=== PATIENT | male | born 1985 | race Caucasian/White ===

== ENCOUNTER 2018-01-06 07:22 | Emergency (ER) | payer SELFPAY ==
[~2018-01-06] VITALS: Ht 180.3 cm; Wt 114.0 kg
[~2018-01-06 07:22] MED LIST: FLEXERIL PO; ULTRAM50 M1 PO
[2018-01-06] MEDS ORDERED: LORTAB 5/3255 MG PO (07:42)
[2018-01-06] MEDS ORDERED: PENICILLN VK500 MG PO (07:42)
[2018-01-06] MEDS ORDERED: MOTRIN800 MG PO (07:42)
[2018-01-06 07:53] VITALS: BP 147/106
== END 2018-01-06 08:02 | disposition home or self-care (01) | DRG 159 ==
LOC: ED 07:22
DX: K08.89 Other specified disorders of teeth and supporting structures (principal); F17.210 Nicotine dependence, cigarettes, uncomplicated; R22.0 Localized swelling, mass and lump, head

== ENCOUNTER 2021-08-26 16:13 | Emergency (ER) | payer BC ==
[~2021-08-26] VITALS: Ht 180.3 cm; Wt 127.0 kg
[~2021-08-26 16:13] MED LIST changes: +LORTAB 5/3255 MG PO; +MOTRIN800 MG PO; +PENICILLN VK500 MG PO
[2021-08-26 17:04] LABS: HEMATOCRIT 46.1 % (39.0-50.0); HEMOGLOBIN 15.3 g/dl (14.0-18.0); IMMATURE GRANULOCYTES 0.5 % (0.0-5.0); MEAN CORPUSCULAR HGB 31.9 pG CALC (26.0-32.0); MEAN CORPUSCULAR HGB CONC 33.2 g/dL CAL (32.0-36.0); NEUT# 7.39 thou/uL (1.82-7.42); RED BLOOD COUNT 4.8 mill/uL (4.70-6.10); RED CELL DISTRI WIDTH 12.3 % (11.5-15.5)
[2021-08-26 17:05] LABS: URINE BILIRUBIN - DIPSTICK NEGATIVE (NEGATIVE); URINE BLOOD DIPSTICK NEGATIVE (NEGATIVE); URINE COLOR YELLOW; URINE GLUCOSE - DIPSTICK NEGATIVE (NEGATIVE); URINE KETONE NEGATIVE (NEGATIVE); URINE LEUK ESTERASE NEGATIVE (NEGATIVE); URINE PROTEIN - DIPSTICK NEGATIVE (NEG-TRACE); URINE SPECIFIC GRAVITY 1.025; URINE UROBILINOGEN - DIPSTICK 0.2 E.U./dL (0.2)
[2021-08-26 17:06] LABS: URINE NITRITE - DIPSTICK NEGATIVE (Negative)
[2021-08-26 17:15] LABS: ALBUMIN 4.5 g/dL (3.2-5.0); ALKALINE PHOSPHATASE 67 u/l (38-126); ANION GAP 14 (6-22 (CALC)); BILIRUBIN, TOTAL 0.4 mg/dL (0.0-1.4); BUN 8 mg/dL (9-20); BUN/CREATININE RATIO 13 (12-20 (CALC)); CARBON DIOXIDE 25 mmol/l (22-30); CHLORIDE 105 mmol/l (95-108); CREATININE 0.7 mg/dL (0.7-1.3); GFR > 60 ML/MIN (>=60 (CALC)); GFR FOR AFR.AMER. > 60 ML/MIN (>=60 (CALC)); SGOT/AST 46 u/l (17-59); SODIUM 140 mmol/l (137-146); TOTAL PROTEIN 7.8 g/dL (6.3-8.2)
[2021-08-26 20:09] VITALS: BP 163/88
== END 2021-08-26 20:15 | disposition home or self-care (01) | DRG 310 ==
LOC: ED 16:13
PROVIDERS: Family Medicine
DX: R00.0 Tachycardia, unspecified (principal); R20.2 Paresthesia of skin; F17.210 Nicotine dependence, cigarettes, uncomplicated